=== PATIENT | female | born 1930 | race Two or more races ===

== ENCOUNTER 2017-07-02 11:48 | Outpatient (CLI) | payer OTHER ==
[~2017-07-02 11:48] MED LIST: CIPRO500 MG PO; URIN D.S. TABLE1 TAB PO
== END 2017-07-02 16:57 | disposition home or self-care (01) ==
LOC: RAD 11:48
DX: S42.22 2-part fracture of surgical neck of humerus (principal)

== ENCOUNTER 2017-08-19 12:34 | Outpatient (CLI) | payer OTHER ==
[~2017-08-19] VITALS: Ht 177.8 cm; Wt 61.2 kg
== END 2017-08-19 12:45 | disposition home or self-care (01) ==
LOC: OFIC 805 12:34
DX: H61.21 Impacted cerumen, right ear (principal); H81.313 Aural vertigo, bilateral; R09.81 Nasal congestion

== ENCOUNTER 2018-02-25 12:35 | Outpatient (CLI) | payer OTHER | END 2018-02-25 12:43 | disposition home or self-care (01) | LOC: LAB 12:35 | DX: R19.7 Diarrhea, unspecified (principal) ==

== ENCOUNTER → 2018-02-25 | Outpatient (CLI) | payer OTHER | END | disposition home or self-care (01) | LOC: SONOGRAMA 10:40 | DX: R10.84 Generalized abdominal pain (principal) ==

== ENCOUNTER 2018-04-27 11:51 | Outpatient (CLI) | payer OTHER | END 2018-04-27 12:02 | disposition home or self-care (01) | LOC: MRI 11:51 | DX: K76.89 Other specified diseases of liver (principal) | CPT/HCPCS: 74182; A9579 ==

== ENCOUNTER 2018-05-07 11:32 | Outpatient (CLI) | payer OTHER | END 2018-05-07 11:58 | disposition home or self-care (01) | LOC: LAB 11:32 | DX: R10.13 Epigastric pain (principal); R19.7 Diarrhea, unspecified; C25.8 Malignant neoplasm of overlapping sites of pancreas; K86.1 Other chronic pancreatitis ==

== ENCOUNTER → 2019-04-07 | Outpatient (CLI) | payer OTHER | END | disposition home or self-care (01) | LOC: RAD 10:14 | DX: J45.31 Mild persistent asthma with (acute) exacerbation (principal) ==

== ENCOUNTER 2019-10-29 10:58 | Outpatient (CLI) | payer OTHER | END 2019-10-29 11:00 | disposition home or self-care (01) | LOC: SONOGRAMA 10:58 | PROVIDERS: ATTEND Internal Medicine Gastroenterology | DX: R10.84 Generalized abdominal pain (principal) ==

== ENCOUNTER → 2020-11-21 | Outpatient (CLI) | payer OTHER | END | disposition home or self-care (01) | LOC: MAMO-SONO 10:45 | PROVIDERS: ATTEND Internal Medicine Gastroenterology | DX: R10.11 Right upper quadrant pain (principal); M54.5 Low back pain; M17.0 Bilateral primary osteoarthritis of knee; M25.562 Pain in left knee; M25.561 Pain in right knee ==

== ENCOUNTER 2020-12-18 12:52 | Inpatient (IN) | payer OTHER ==
[~2020-12-18] VITALS: Ht 157.5 cm; Wt 49.9 kg
== END 2020-12-21 07:45 | disposition designated cancer center or children's hospital (05) | DRG 291 ==
LOC: ER 12:52 → ICU 19:30
PROVIDERS: ADMIT Internal Medicine; ATTEND Internal Medicine
PROC: B24BYZZ Ultrasonography of Heart with Aorta using Other Contrast (ICD-10-PCS; 2020-12-18)
PROC: BW24ZZZ Computerized Tomography (CT Scan) of Chest and Abdomen (ICD-10-PCS; principal; 2020-12-19)
PROC: 3E0F7SF Introduction of Other Gas into Respiratory Tract, Via Natural or Artificial Opening (ICD-10-PCS; 2020-12-19)
DX: I11.0 Hypertensive heart disease with heart failure (principal); J18.8 Other pneumonia, unspecified organism; N17.8 Other acute kidney failure; I50.1 Left ventricular failure, unspecified; I50.23 Acute on chronic systolic (congestive) heart failure; I44.1 Atrioventricular block, second degree; R09.02 Hypoxemia; R00.1 Bradycardia, unspecified; R06.02 Shortness of breath; E78.5 Hyperlipidemia, unspecified; Z20.822 Contact with and (suspected) exposure to COVID-19

== ENCOUNTER 2021-04-03 23:32 | Inpatient (IN) | payer OTHER ==
[~2021-04-03] VITALS: Ht 152.4 cm; Wt 54.4 kg
[2021-04-03] MEDS ORDERED: XANAX0.25 MG (23:58)
[2021-04-03] MEDS ORDERED: EXELON1 EAC1 (23:58)
[2021-04-03] MEDS ORDERED: ZOLOFT20 MG/1 ML (23:58)
[2021-04-03] MEDS ORDERED: PEPCID AC10 MG (23:58)
[2021-04-03] MEDS ORDERED: CARVEDILOL12.5 MG (23:58)
[2021-04-03] MEDS ORDERED: ALDACTONE100 MG (23:58)
[2021-04-03] MEDS ORDERED: SINGULAIR 5MG5 MG (23:59)
--- NOTE | 2021-04-04 00:02 | NUR ---
SE RECIBE FEMINA EN ESTADO LETARGICO, EN AMBULANCIA EN COMPANIA DE3 FAMILIAR QUIEN INDICA QUE LA PACIENTE PRESENTA DIFICULTAD RESPIRATORIA DESDE GUICHO.
--- NOTE | 2021-04-04 00:05 | NUR ---
SE ORIENTA A FAMILIAR Y PTE SOBRE EL TX. SE EXTRAEN MUESTRAS DE ANNEMARIE BAJO MEDIDAS ASEPTICAS SE ROTULAN Y ENVIAN AL LABORATORIO SE CANALIZA Y [place] IV. SE INSERTA MUIR CATETER BAJO MEDIDAS ESTERILES DRENANDO UA EN POCA CANTIAD AMARIJAQUANO CARLA.
== END 2021-04-18 22:46 | disposition expired | DRG 207 ==
LOC: ER 23:32 → ICU-2 04-04 08:57 → ICU 04-06 19:08
PROVIDERS: ADMIT Internal Medicine; ATTEND Internal Medicine
PROC: 5A1955Z Respiratory Ventilation, Greater than 96 Consecutive Hours (ICD-10-PCS; principal; 2021-04-04)
PROC: 3E0F7GC Introduction of Other Therapeutic Substance into Respiratory Tract, Via Natural or Artificial Opening (ICD-10-PCS; 2021-04-04)
PROC: B24BZZZ Ultrasonography of Heart with Aorta (ICD-10-PCS; 2021-04-04)
PROC: 4A033R1 Measurement of Arterial Saturation, Peripheral, Percutaneous Approach (ICD-10-PCS; 2021-04-04)
PROC: 05HY33Z Insertion of Infusion Device into Upper Vein, Percutaneous Approach (ICD-10-PCS; 2021-04-04)
PROC: BW25ZZZ Computerized Tomography (CT Scan) of Chest, Abdomen and Pelvis (ICD-10-PCS; 2021-04-04)
PROC: 8E0ZXY6 Isolation (ICD-10-PCS; 2021-04-04)
PROC: 30243N1 Transfusion of Nonautologous Red Blood Cells into Central Vein, Percutaneous Approach (ICD-10-PCS; 2021-04-07)
DX: J69.0 Pneumonitis due to inhalation of food and vomit (principal); A41.9 Sepsis, unspecified organism; R65.21 Severe sepsis with septic shock; J96.00 Acute respiratory failure, unspecified whether with hypoxia or hypercapnia; N18.6 End stage renal disease; I50.23 Acute on chronic systolic (congestive) heart failure; I13.2 Hypertensive heart and chronic kidney disease with heart failure and with stage 5 chronic kidney disease, or end stage renal disease; N17.8 Other acute kidney failure; N39.0 Urinary tract infection, site not specified; J15.0 Pneumonia due to Klebsiella pneumoniae; J15.211 Pneumonia due to Methicillin susceptible Staphylococcus aureus; D72.828 Other elevated white blood cell count; E87.5 Hyperkalemia; D64.9 Anemia, unspecified; E11.22 Type 2 diabetes mellitus with diabetic chronic kidney disease; Z79.4 Long term (current) use of insulin; Z20.822 Contact with and (suspected) exposure to COVID-19; Z99.89 Dependence on other enabling machines and devices; I34.0 Nonrheumatic mitral (valve) insufficiency